=== PATIENT | male | born 1990 | race American Indian/Alaskan Native ===

== ENCOUNTER 2019-07-06 12:06 | Emergency (ER) | payer SELFPAY ==
[2019-07-06 14:13] VITALS: BP 116/69
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
== END 2019-07-06 14:19 | disposition left against medical advice (07) ==
LOC: ED 12:06
DX: M62.830 Muscle spasm of back (principal); F17.200 Nicotine dependence, unspecified, uncomplicated; V49.69XA Unspecified car occupant injured in collision with other motor vehicles in traffic accident, initial encounter; Y93.89 Activity, other specified; Y92.488 Other paved roadways as the place of occurrence of the external cause; Y99.8 Other external cause status
CPT/HCPCS: 99281

== ENCOUNTER 2021-08-31 23:10 | Emergency (ER) | payer SELFPAY ==
[2021-08-31 23:48] VITALS: BP 101/60
== END 2021-09-01 03:01 | disposition left against medical advice (07) ==
LOC: ED 23:10
DX: Z04.1 Encounter for examination and observation following transport accident (principal); Z53.21 Procedure and treatment not carried out due to patient leaving prior to being seen by health care provider; V89.2XXA Person injured in unspecified motor-vehicle accident, traffic, initial encounter; Y93.89 Activity, other specified; Y92.89 Other specified places as the place of occurrence of the external cause; Y99.8 Other external cause status